=== PATIENT | female | born 1990 | race Caucasian/White ===

== ENCOUNTER 2020-04-26 08:18 | Outpatient (REF) | payer OTHER, SELFPAY | END 2020-04-26 08:19 | disposition home or self-care (01) | LOC: HO.HMGCLDS 08:18 | PROVIDERS: PCP Internal Medicine; Visit Provider Internal Medicine | DX: Z20.828 Contact with and (suspected) exposure to other viral communicable diseases (principal) | CPT/HCPCS: C9803; U0003 ==

== ENCOUNTER 2020-05-04 11:23 | Outpatient (REF) | payer OTHER, SELFPAY ==
[2020-05-05 07:47] LABS: ~Hepatitis B Surface Antibody NONREACTIVE (Nonreactive)
[2020-05-05 23:08] LABS: Rubella IgG Antibody 5.51 index
== END 2020-05-04 11:24 | disposition home or self-care (01) ==
LOC: HO.LAB 11:23
PROVIDERS: PCP Internal Medicine; Visit Provider Internal Medicine
DX: Z23 Encounter for immunization (principal)
CPT/HCPCS: 86706; 86735; 86762; 86765; 86787